=== PATIENT | male | born 1955 | race Caucasian/White ===

== ENCOUNTER → 2018-08-07 | Outpatient (CLI) | payer MEDICARE ==
--- NOTE | 2018-08-07 16:59 | US ---
EXAMINATION TYPE: US prostate transrectal DATE OF EXAM: 08/07/2018 COMPARISON: NONE CLINICAL HISTORY: R97.20 Elevated PSA. This examination was performed using the transrectal probe. EXAM MEASUREMENTS: Gland Size: 6.9 x 2.8 x 4.8cm Volume: 50.6 Predicted PSA: 6.0 Actual PSA (if available):5.1 Shadowing area superior obscuring that area. Full bladder made scanning very technically difficult. S tudy limited. Patient unable to empty bladder. Seminal vesicles not visualized. There does appear to be a lesion in the peripheral zone measuring 1.2 x 0.7 x 1.2cm IMPRESSION: Right peripheral zone lesion. Consider tissue diagnosis. Predicted PSA = volume x 0.12 ng/ml Calculated Volume = 0.5236 x L x W x H
== END ==
LOC: RADUSMAIN 07:20
PROVIDERS: ATTEND Family Medicine
DX: N42.9 Disorder of prostate, unspecified (principal); R97.20 Elevated prostate specific antigen [PSA]
CPT/HCPCS: 76872

== ENCOUNTER → 2019-02-17 | Outpatient (CLI) | payer MEDICARE ==
[2019-02-17 17:29] LABS: Basophils # (A) 0.1 k/uL (0-0.2); Basophils % (A) 1 %; Eosinophils # (A) 0.1 k/uL (0-0.7); Eosinophils % (A) 2 %; HCT 40.7 % (39.0-53.0); HGB 13.8 gm/dL (13.0-17.5); Lymphocytes # (A) 1.6 k/uL (1.0-4.8); Lymphocytes % (A) 32 %; MCH 29.3 pg (25.0-35.0); MCHC 33.9 g/dL (31.0-37.0); MCV 86.4 fL (80.0-100.0); Mean Platelet Volume 6.6; Monocytes # (A) 0.3 k/uL (0-1.0); Monocytes % (A) 6 %; Neutrophils # (A) 2.7 k/uL (1.3-7.7); Neutrophils % (A) 56 %; Platelet Count 220 k/uL (150-450); RBC 4.71 m/uL (4.30-5.90); RDW 13.2 % (11.5-15.5); WBC 4.9 k/uL (3.8-10.6)
[2019-02-17 17:45] LABS: ALT 30 U/L (21-72); AST 27 U/L (17-59); African American GFR (CKD) 81 (>60 ml/min/1.73 sqM); Albumin 4.2 g/dL (3.5-5.0); Albumin/Globulin Ratio 1.4; Alkaline Phosphatase 64 U/L (38-126); Anion Gap 8 mmol/L; Blood Urea Nitrogen 19 mg/dL (9-20); Calcium 9.3 mg/dL (8.4-10.2); Carbon Dioxide 28 mmol/L (22-30); Chloride 107 mmol/L (98-107); Creatine Kinase 88 U/L (55-170); Glucose 103 mg/dL (74-99); Potassium 4.1 mmol/L (3.5-5.1); Sodium 143 mmol/L (137-145); Total Bilirubin 0.7 mg/dL (0.2-1.3); Total Protein 7.2 g/dL (6.3-8.2)
[2019-02-17 18:01] LABS: T4, Free (Free Thyroxine) 0.98 ng/dL (0.78-2.19)
== END | disposition home or self-care (01) ==
LOC: LABWHC1 16:14
PROVIDERS: ATTEND Family Medicine
DX: R07.9 Chest pain, unspecified (principal); R00.1 Bradycardia, unspecified
CPT/HCPCS: 36415; 80053; 82550; 84439; 84443; 84484; 85025; 85379

== ENCOUNTER → 2019-03-09 | Outpatient (CLI) | payer MEDICARE ==
--- NOTE | 2019-03-09 13:29 | ECHOS ---
STRESS ECHOCARDIOGRAM DATE OF SERVICE: 03/09/2019 INDICATIONS: Chest pain. MEDICATIONS: Lipitor, Viagra, Aleve. BASELINE HEART RATE: 59 BASELINE BLOOD PRESSURE: 132/77 MAXIMUM HEART RATE: 141 MAXIMUM BLOOD PRESSURE: 176/93 85% MPHR: 132 100% MPHR: 155 METS: 12.1 MAXIMUM STAGE REACHED: IV TOTAL EXERCISE TIME: 12 minutes CLINICAL INFORMATION: Baseline EKG revealed a normal sinus rhythm with leftward axis and evidence of ST and T- wave abnormality in inferolateral leads. Patient walked for 12 minutes on a standard [facility] protocol. Achieved a maximal heart rate of 141 beats per minute which is well above 85% of predicted maximal heart rate. Nonspecific ST changes were noted making this an inconclusive stress test because of resting EKG changes. There was no arrhythmia. There was no angina. By EKG criteria, this is an inconclusive stress test with excellent exercise capacity. One rare isolated PVC was noted. Baseline echo images revealed normal wall motion and wall thickening of all segments. At peak exercise, the echo images were unfortunately suboptimal. The apical 2 chamber views were of poor quality. However, based on the available images, I do not believe there is evidence of stress-induced ischemia. There is an increase in wall motion and wall thickening of all segments suggesting that there is no evidence of stress-induced ischemia on this suboptimal stress echocardiogram. FINAL IMPRESSION: 1. Excellent exercise capacity with inconclusive stress test by EKG criteria because of resting EKG changes. 2. Suboptimal quality of images, but no clear-cut evidence suggest ischemia on this stress echocardiogram. Excellent exercise capacity was demonstrated. MMODL / IJN: [id number] /
== END | disposition home or self-care (01) ==
LOC: RADNMMAIN 09:31
PROVIDERS: ATTEND Family Medicine
DX: R94.39 Abnormal result of other cardiovascular function study (principal)
CPT/HCPCS: 93351